=== PATIENT | female | born 1995 | race Caucasian/White ===

== ENCOUNTER → 2019-12-12 | Outpatient (CLI) | payer MEDICAID, SELFPAY ==
[2015-02-08 14:08] VITALS: BMI 31.8
[2019-12-12 12:28] LABS: Chlamydia Trachomatis by PCR Negative (Negative); Neisserai gonorrhoeae by PCR Negative (Negative); Probe Check PASS; Sample Adequacy Control PASS; Specimen Processing Control PASS
== END | disposition home or self-care (01) ==
LOC: LABSPEC 09:25
PROVIDERS: Referring Provider Obstetrics & Gynecology; Visit Provider Obstetrics & Gynecology
DX: Z12.4 Encounter for screening for malignant neoplasm of cervix (principal); Z11.3 Encounter for screening for infections with a predominantly sexual mode of transmission
CPT/HCPCS: 87491; 87591; 88175; G0145

== ENCOUNTER → 2019-12-20 | Outpatient (CLI) | payer MEDICAID, SELFPAY ==
[2019-12-20 17:53] LABS: Absolute Lymphocyte Count 3.36 X10^3/uL (0.83-4.51); Absolute Neutrophil Count 9.6 X10^3/uL (2.0-7.7); Basophil# 0.09 X10^3/uL; Basophil% 0.6 % (0-1); Eosinophils% 0.7 % (0-5); Hematocrit 40.4 % (37-47); Hemoglobin 13.6 g/dL (12.0-15.0); Lymphocyte # 3.36 X10^3/ul (4.0); Mean Corp Hgb Conc 33.7 g/dL (32-36); Mean Corpuscular Hgb 28.9 pg (27.0-32.0); Mean Corpuscular Volume 85.8 fL (81-99); Mean Platelet Vol. 12.5 fl (6.2-12.0); Monocyte# 0.84 X10^3/uL; NRBC Flagged by Analyzer 0 % (0-5); Neutrophil # 9.56 X10^3/uL (2.7-7.7); Neutrophil % 68.2 % (47-70); Platelet Count 191 K/mm3 (150-450); RBC Distribution Width CV 12.4 % (11.6-14.6); RBC Distribution Width SD 38.5 fl (35.1-43.9); Red Blood Count 4.71 M/mm3 (4.2-5.4)
[2019-12-20 17:55] LABS: Color, Urine Yellow (Yellow); Glucose, Dipstick Normal (Normal); Ketone-Dipstick Negative (Negative); Leukocyte Esterase-Dipstick Negative /ul (Negative); Nitrite-Dipstick Negative (Negative); Occult Blood-Urine Negative /ul (Negative); Protein-Dipstick Negative (Negative); Specific Gravity, Urine 1.005 (1.002-1.030); Urine Bilirubin Dipstick Negative (Negative); Urine Clarity Sl. Cloudy (Clear); Urine Urobilinogen Normal (Normal)
[2019-12-20 18:08] LABS: Thyroid Stim Hormone (TSH) 1.16 uIU/mL (0.358-3.74)
[2019-12-20 18:34] LABS: Amphetamine Urine VISTA NEGATIVE (<1000 ng/mL); Barbiturate Urine VISTA NEGATIVE (< 200 ng/mL); Benzodiazepine Urine VISTA NEGATIVE (< 200 ng/mL); Cocaine Urine VISTA NEGATIVE (< 300 ng/mL); Ecstacy Urine VISTA NEGATIVE (< 500 ng/mL); Methadone Urine VISTA NEGATIVE (< 300 ng/mL); PCP Urine VISTA NEGATIVE (< 25 ng/mL); THC Urine VISTA NEGATIVE (< 50 ng/mL); Vista UDS pH Range 6
[2019-12-20 18:59] LABS: COTININE Drug Screen Positive (<200 ng/mL)
[2019-12-21 08:49] LABS: HIV - WCH Non-Reactive (Nonreactive); Hepatitis B Surface Antigen Non-Reactive (Nonreactive); Hepatitis C Antibody Non-Reactive (Nonreactive); Rubella IgG 103.7 IU/mL
[2019-12-27 08:04] LABS: Prenatal RPR NONREACTIVE (NONREACTIVE)
== END | disposition home or self-care (01) ==
PROVIDERS: Referring Provider Obstetrics & Gynecology; Visit Provider Obstetrics & Gynecology
DX: Z34.81 Encounter for supervision of other normal pregnancy, first trimester (principal)
CPT/HCPCS: 80307; 81002; 84443; 85025; 86703; 86762; 86803; 87340

== ENCOUNTER 2020-02-09 18:40 | Emergency (ER) | payer MEDICAID, SELFPAY ==
[2020-02-09 18:42] VITALS: BP 119/57; PULSE 106; RESP 18; TEMP 36.6; O2SAT 99; BMI 29.5
[2020-02-09] MEDS: Acetaminophen 500 MG Tablet 1000 MG PO (19:12)
[2020-02-09 19:23] LABS: Color, Urine Yellow (Yellow); Glucose, Dipstick Normal (Normal); Ketone-Dipstick 5 mg/dl (Negative); Leukocyte Esterase-Dipstick 25 /ul (Negative); Nitrite-Dipstick Negative (Negative); Occult Blood-Urine 10 /ul (Negative); Protein-Dipstick 30 mg/dl (Negative); Specific Gravity, Urine 1.025 (1.002-1.030); Urine Bilirubin Dipstick Negative (Negative); Urine Clarity Clear (Clear); Urine Urobilinogen 1 mg/dl (Normal)
[2020-02-09 19:32] LABS: Bacteria 2+ /hpf (None Seen); Mucous, Urine 1+ /hpf (<or=2+); Red Blood Cells-Urine 0-5 SEEN /hpf (0-5); Renal Epithelial Cells 0-5 SEEN /hpf (0-5); Squamous Epithelial Cells - UA 0-5 SEEN /hpf (5-10); White Blood Cells 0-5 SEEN /hpf (0-5)
--- NOTE | 2020-02-09 19:33 | ED.DCSUM_ITS ---
- ER Visit Summary Date of Service: 02/09/20 Chief Complaint: Abdominal cramping History of Present Illness: The patient is a 24 F who is a G5, P1 patient with Dr. Dinero. She reports she is approximately 17 weeks . States that she has abdominal cramping that began this morning. It is an intermittent pain that lasts 30 seconds to a minute and seems to be occurring every 5 to 6 minutes. She describes it as a cramping, pressure that is 8 of 10 at worst and 6 out of 10 currently. Is worsened by sitting. Is relieved by standing. She denies any associated nausea, vomiting, or diarrhea. Her last bowel was today. No hematochezia. No dysuria or frequency. No vaginal bleeding or discharge. She reports normal movement. Physical Examination: Vitals: Stable. Afebrile. General: Well-nourished and well-developed. Head: Normocephalic atraumatic. Neck: Supple, no lymphadenopathy. No JVD. Nontender. Cardiovascular: Regular rate and rhythm. No murmurs. Respiratory: No respiratory distress. Clear to auscultation bilaterally. Abdominal: Gravid uterus. Soft, mild suprapubic tenderness to palpation. No localized pain in the right upper or right lower quadrants., nondistended, normal bowel sounds. No guarding, rebound, or peritoneal signs. Back: Nontender. Extremities: Nontender, no edema. Skin: Normal color, no rash. Neurologic: Alert and oriented ?3. Cranial nerves II through XII are intact. Normal strength and sensation. Psych: Normal affect. Test Results: Urinalysis shows leukocytes, blood, and ketones. Bacteria of 2+. This was sent for culture. Emergency Department Course and Treatment: Bedside ultrasound shows good movement and heartbeat. Patient was treated with Keflex and Tylenol p.o. She is resting comfortably. Treatment Plan: Patient will be discharged on Keflex. Instructed to follow-up with Dr. Dinero in a week for another exam if not improving. Return to the emergency department for any worsening symptoms. Disposition: To home in improved and stable condition. Impression: 1. Abdominal cramping. 2. Second trimester . 3. Bacteriuria. This note was generated with [employer] software. It may contain incorrect words, spelling, and punctuation that were not noted in review of the chart prior to signing ED Disposition - Plan for ED Patient: Instructions: ED CYSTITIS Female Adult Prescriptions: Cephalexin [Keflex] 500 mg PO Q12 #14 capsule Referrals: Evelyne Darby CNM [Primary Care Provider] - 1 Week if not improving
[2020-02-09 19:39] VITALS: PULSE 76; RESP 15; O2SAT 100
[2020-02-09] MEDS: Cephalexin 500 MG Capsule PO (19:47)
== END 2020-02-09 19:58 | disposition home or self-care (01) ==
PROVIDERS: Emergency Provider Emergency Medicine; PCP Obstetrics & Gynecology
DX: O26.892 Other specified pregnancy related conditions, second trimester (principal); R10.9 Unspecified abdominal pain; R82.71 Bacteriuria; O99.332 Smoking (tobacco) complicating pregnancy, second trimester; F17.210 Nicotine dependence, cigarettes, uncomplicated; Z3A.17 17 weeks gestation of pregnancy
CPT/HCPCS: 81001; 87086; 87088; 99283

== ENCOUNTER 2020-04-30 15:53 | Outpatient (CLI) | payer MEDICAID, SELFPAY ==
[2020-04-30 16:06] VITALS: BP 99/57; PULSE 92; TEMP 37.1; O2SAT 98
[2020-04-30 16:09] VITALS: PULSE 91; O2SAT 98
[2020-04-30 16:10] VITALS: BP 99/57; PULSE 88
[2020-04-30 16:14] VITALS: BMI 33.8
[2020-04-30 16:26] VITALS: BP 101/61; PULSE 85
[2020-04-30 16:41] VITALS: BP 101/62; PULSE 81
[2020-04-30 16:56] VITALS: BP 103/62; PULSE 86
--- NOTE | 2020-05-01 18:27 | OB.TRI.HP_ITS ---
- Problem List (1) 28 weeks gestation of Status: Acute (2) Dizziness Status: Acute (3) Blurred vision Status: Acute History of Present Illness Date of Service: 04/30/20 Was patient seen by the physician?: Yes Reason For Visit: R/O HYPERTENSION,ELEVATED BLOOD PRESSURE Date of Service: 04/30/20 Final BINDU: 07/22/20 Final BINDU Source: US <20 weeks Gestational age: 28 Weeks and 2 Days History of Present Illness: Called in to OB office today with blurred vision, headache and dizziness. States after one hour of rest and hydration she was feeling better, but stood up and got dizzy again. Allergies No Known Allergies Allergy (Verified 02/09/20 18:41) Review of Systems Constitutional: Denies: Chills, Fever, Weight Change HEENT: Denies: Head Aches, Sinus Congestion, Sinus Drainage Cardiovascular: Denies: Chest Pain, Palpitations Respiratory: Denies: Cough, Shortness of breath at rest, Sputum production Gastrointestinal: Denies: Abdominal Pain, Nausea, Vomiting Genitourinary: Denies: Dysuria Musculoskeletal: Denies: Joint Pain, Joint Tenderness Skin: Denies: Rash, Wounds Neurological: Reports: Blurred vision, Headaches. Denies: Focal weakness, Numbness, Tingling Psychiatric: Denies: Anxiety, Depression, Homicidal Ideations, Suicidal Ideations Hematologic/ Lymphatic: Denies: Easy Bruising, Easy Bleeding Physical Exam Vitals: Vital Signs Temp Pulse BP Pulse Ox 98.7 F 86 103/62 98 04/30/20 16:06 04/30/20 16:56 04/30/20 16:56 04/30/20 16:09 General: Alert, Oriented x3, No apparent distress HEENT: Atraumatic, Normocephalic. Negative for: Thyromegaly, Lymphadenopathy Cardiovascular: Regular rate, Regular Rhythm Lungs: Clear to auscultation Abdomen: Bowel Sounds Present, Gravid Neurological: Deep Tendon Reflexes 2+/4 and Symmetrical, Neuro grossly intact SOUND EFFECTS MANAGER: Normal external genitalia. Negative for: Vulvar lesions Estimated gestational size: Appropriate for gestational size NST - FHR Rate Baby A Baseline: 130 Variability:: Moderate Accelerations:: 15 x 15 Decelerations:: None NST Reactive:: Yes FHR Category:: Category I Uterine Activity:: quiet Impression/Plan A/P: at 28 weeks gestation Called in with dizziness, blurred vision and headache With Tylenol and water headache relieved BPs 90s-100s/60s-80s Urine clear Denies vision changes at this time, will discuss with pre press operator as needed Discussed with Dr. Dinero whom agrees to send patient home to rest and hydrate To follow up in the office if worsening s/s or go to the emergency room after hours
== END 2020-04-30 17:15 | disposition home or self-care (01) ==
LOC: WPOUT 15:57 → WP 15:58
PROVIDERS: Referring Provider Obstetrics & Gynecology; Visit Provider Obstetrics & Gynecology
DX: O26.893 Other specified pregnancy related conditions, third trimester (principal); R42 Dizziness and giddiness; H53.8 Other visual disturbances; R03.0 Elevated blood-pressure reading, without diagnosis of hypertension; R51 Headache; Z3A.28 28 weeks gestation of pregnancy
CPT/HCPCS: 59050; 99218; G0378

== ENCOUNTER → 2020-05-05 | Outpatient (CLI) | payer MEDICAID, SELFPAY ==
[2020-04-30 16:14] VITALS: BMI 33.8
[2020-05-05 16:06] LABS: Hematocrit 37.2 % (37-47); Hemoglobin 12.3 g/dL (12.0-15.0); Mean Corp Hgb Conc 33.1 g/dL (32-36); Mean Corpuscular Hgb 29.4 pg (27.0-32.0); Mean Platelet Vol. 12.9 fl (6.2-12.0); Platelet Count 157 K/mm3 (150-450); RBC Distribution Width CV 13.1 % (11.6-14.6); RBC Distribution Width SD 41.9 fl (35.1-43.9); Red Blood Count 4.18 M/mm3 (4.2-5.4)
[2020-05-05 16:10] LABS: Glucose Challenge Gest 1H 50g 73 mg/dL (70-140)
== END | disposition home or self-care (01) ==
LOC: WOBLAB 14:21
PROVIDERS: Visit Provider Obstetrics & Gynecology
DX: Z34.82 Encounter for supervision of other normal pregnancy, second trimester (principal)
CPT/HCPCS: 36415; 82950; 85027

== ENCOUNTER 2020-06-07 23:45 | Outpatient (CLI) | payer MEDICAID, SELFPAY ==
[2020-06-08 00:13] VITALS: BP 105/59; PULSE 78; TEMP 36.9; O2SAT 95
[2020-06-08 00:18] VITALS: BMI 36.0
[2020-06-08 00:29] LABS: Bacteria 0 SEEN /hpf (None Seen); Mucous, Urine 0 SEEN /hpf (<or=2+); Red Blood Cells-Urine 0 SEEN /hpf (0-5)
[2020-06-08 00:30] LABS: Color, Urine Yellow (Yellow); Glucose, Dipstick Normal (Normal); Ketone-Dipstick Negative (Negative); Leukocyte Esterase-Dipstick 25 /ul (Negative); Nitrite-Dipstick Negative (Negative); Occult Blood-Urine Negative /ul (Negative); Protein-Dipstick Negative (Negative); Urine Bilirubin Dipstick Negative (Negative); Urine Clarity Clear (Clear); Urine Urobilinogen Normal (Normal)
[2020-06-08 00:35] LABS: Squamous Epithelial Cells - UA 0-5 SEEN /hpf (5-10); White Blood Cells 0-5 SEEN /hpf (0-5)
--- NOTE | 2020-06-08 08:23 | PCM.PN.BLA ---
Progress Note Triage Note CC: urinary symptoms HPI: Reports urinary symptoms, burning and frequency. Contractions. complicated by: history of depression OBHx: G1 SAB G2: 39w c/s G3: SAB G4: SAB G5: current Medical hx: depression Surgical Hx: right ovarian cystectomy, c/s, tonsillectomy Medications: PNV Allergies: NKDA Social hx: denies tobacco, alcohol, drugs PE: Vital Signs - 24 hr 06/08/20 00:13 Temperature 98.4 F Pulse Rate 78 Blood Pressure 105/59 L Pulse Ox 95 Exam per RN CE not performed Contractions palpating mild and patient comfortable during FHR: 120/mod hussein/+accel/no decel [place]: irregular Labs: Laboratory Last Values Urine Color Yellow (Yellow) 06/08/20 00:00 Urine Clarity Clear (Clear) 06/08/20 00:00 Urine pH 7.0 (5.0 - 8.0) 06/08/20 00:00 Ur Specific [place] 1.010 (1.002-1.030) 06/08/20 00:00 Urine Protein Negative mg/dl (Negative) 06/08/20 00:00 Urine Glucose (UA) Normal mg/dl (Normal) 06/08/20 00:00 Urine Ketones Negative mg/dl (Negative) 06/08/20 00:00 Urine Occult Blood Negative /ul (Negative) 06/08/20 00:00 Urine Nitrite Negative (Negative) 06/08/20 00:00 Urine Bilirubin Negative mg/dL (Negative) 06/08/20 00:00 Urine Urobilinogen Normal mg/dl (Normal) 06/08/20 00:00 Ur Leukocyte Esterase 25 /ul (Negative) H 06/08/20 00:00 Urine RBC 0 SEEN /hpf (0-5) 06/08/20 00:00 Urine WBC 0-5 SEEN /hpf (0-5) 06/08/20 00:00 Ur Squamous Epith Cells 0-5 SEEN /hpf (5-10) 06/08/20 00:00 Urine Bacteria 0 SEEN /hpf (None Seen) 06/08/20 00:00 Urine Mucus 0 SEEN /hpf (<or=2+) 06/08/20 00:00 A/P: 24 yo G1 at 33/5 Presenting with urinary symptoms and contractions. No signs of UTI per UA. Contractions about every 6 minutes, patient comfortable. Discharge home with labor precautions. Rest and PO hydrate. Follow up in office this week.
== END 2020-06-08 01:00 | disposition home or self-care (01) ==
LOC: WPOUT 23:47 → WP 23:50
PROVIDERS: Visit Provider Student in an Organized Health Care Education/Training Program
DX: O26.893 Other specified pregnancy related conditions, third trimester (principal); R30.0 Dysuria; R35.0 Frequency of micturition
CPT/HCPCS: 59025; 59050; 81001; 99218; G0378

== ENCOUNTER 2020-06-22 16:30 | Outpatient (CLI) | payer MEDICAID, SELFPAY ==
[2020-06-22 16:42] VITALS: BP 126/68; PULSE 104; PULSE 107; TEMP 37.1; O2SAT 99
[2020-06-22 16:44] VITALS: PULSE 104; O2SAT 99
[2020-06-22 17:30] LABS: ROM Internal Control Test YES-OK TO RESULT pt. (Internal QC); ROM Patient Test Negative (Negative)
[2020-06-22 18:04] VITALS: BMI 36.7
[2020-06-22 19:49] VITALS: BP 104/62; PULSE 86; O2SAT 98
[2020-06-22 19:51] VITALS: TEMP 36.9
--- NOTE | 2020-06-26 12:48 | OB.TRI.NOTE ---
- Problem List (1) 35 weeks gestation of Status: Acute History of Present Illness Date of Service: 06/22/20 Reason For Visit: FALL Final BINDU: 07/24/20 Final BINDU Source: US <20 weeks Gestational age: 35 Weeks and 3 Days History of Present Illness: 24yo presents s/p fall down 3 steps without abdominal trauma. Allergies No Known Allergies Allergy (Verified 06/22/20 17:00) Laboratory Studies: Laboratory Tests 06/22/20 Range/Units 17:05 Vag Amniotic Fld Detect Negative (Negative) Physical Exam Vitals: Vital Signs Temp Pulse BP Pulse Ox 98.4 F 86 104/62 98 06/22/20 19:51 06/22/20 19:49 06/22/20 19:49 06/22/20 19:49 NST - FHR Rate Baby A Baseline: 120 Variability:: Moderate Accelerations:: 15 x 15 Decelerations:: None NST Reactive:: Yes FHR Category:: Category I Uterine Activity:: 0/10 Impression/Plan 24yo @ 35 3/7wga -Cat I FHR -ROM plus neg -d/c home
== END 2020-06-22 20:55 | disposition home or self-care (01) ==
LOC: WPOUT 16:39 → OBT 16:40
PROVIDERS: Visit Provider Obstetrics & Gynecology
DX: Z34.93 Encounter for supervision of normal pregnancy, unspecified, third trimester (principal); Z23 Encounter for immunization; W19.XXXA Unspecified fall, initial encounter; Y92.9 Unspecified place or not applicable; Y93.9 Activity, unspecified; Z3A.35 35 weeks gestation of pregnancy
CPT/HCPCS: 59025; 59050; 84112; 96372; 99218; 90686; G0378

== ENCOUNTER → 2020-07-01 | Outpatient (CLI) | payer MEDICAID, SELFPAY ==
[2020-06-22 18:04] VITALS: BMI 36.7
== END | disposition home or self-care (01) ==
LOC: LABSPEC 11:54
PROVIDERS: Visit Provider Student in an Organized Health Care Education/Training Program
DX: Z36.85 Encounter for antenatal screening for Streptococcus B (principal)
CPT/HCPCS: 87081

== ENCOUNTER → 2020-07-14 14:47 | Outpatient (CLI) | payer MEDICAID, SELFPAY ==
[2020-06-22 18:04] VITALS: BMI 36.7
[2020-07-14 16:45] LABS: Hematocrit 36.9 % (37-47); Hemoglobin 12.1 g/dL (12.0-15.0); Mean Corp Hgb Conc 32.8 g/dL (32-36); Mean Corpuscular Hgb 27.9 pg (27.0-32.0); Mean Corpuscular Volume 85.2 fL (81-99); Mean Platelet Vol. 12.7 fl (6.2-12.0); Platelet Count 165 K/mm3 (150-450); RBC Distribution Width CV 13.8 % (11.6-14.6); RBC Distribution Width SD 42.5 fl (35.1-43.9); Red Blood Count 4.33 M/mm3 (4.2-5.4); White Blood Count 23.4 K/mm3 (4.4-11.0)
[2020-07-14 16:57] LABS: ALB/GLOB Ratio 0.7 RATIO (0.9-2.4); AST(SGOT) 8 U/L (15-37); Alanine Aminotransfer ALT/SGPT 13 U/L (13-56); Albumin, Serum 2.7 g/dL (3.2-5.0); Alkaline Phosphatase 147 U/L (45-117); Anion Gap 8 (5-15); BUN 6 mg/dL (7-18); BUN/Creat Ratio 9.5 RATIO (10-20); Calcium,Total 8.5 mg/dL (8.5-10.1); Chloride 109 mmol/L (98-107); Creatinine, Serum 0.63 mg/dL (0.55-1.02); EST Glomerular Filtration Rate 124 mL/min (>60); Est Glom Filt Rate - Afr Amer 150 mL/min (>60); Globulin 3.9 g/dL (2.2-4.2); Glucose 89 mg/dL (74-106); LDH 155 U/L (84-246); Potassium 3.8 mmol/L (3.5-5.1); Protein, Total 6.6 g/dL (6.4-8.2); Sodium Level 139 mmol/L (136-145)
[2020-07-14 17:27] LABS: Protein, Urine (Random) < 6.0 mg/dL (<11.9)
== END ==
PROVIDERS: Visit Provider Student in an Organized Health Care Education/Training Program
DX: R51.9 Headache, unspecified (principal)
CPT/HCPCS: 36415; 80053; 82570; 83615; 84156; 85027; 87086; 87088

== ENCOUNTER → 2020-07-22 10:02 | Outpatient (CLI) | payer MEDICAID, SELFPAY ==
[2020-06-22 18:04] VITALS: BMI 36.7
== END ==
PROVIDERS: Referring Provider Student in an Organized Health Care Education/Training Program; Visit Provider Student in an Organized Health Care Education/Training Program
DX: Z03.818 Encounter for observation for suspected exposure to other biological agents ruled out (principal)
CPT/HCPCS: 87635; C9803; U0003

== ENCOUNTER 2020-07-24 18:55 | Outpatient (CLI) | payer MEDICAID, SELFPAY ==
[2020-07-24 19:10] VITALS: BP 123/64; PULSE 99; TEMP 36.7; O2SAT 98
[2020-07-24 19:28] VITALS: BMI 37.8
[2020-07-24 20:19] LABS: Mucous, Urine 0 SEEN /hpf (<or=2+); Red Blood Cells-Urine 0 SEEN /hpf (0-5)
[2020-07-24 20:23] LABS: Color, Urine Yellow (Yellow); Glucose, Dipstick Normal (Normal); Ketone-Dipstick 5 mg/dl (Negative); Leukocyte Esterase-Dipstick Negative /ul (Negative); Nitrite-Dipstick Negative (Negative); Occult Blood-Urine Negative /ul (Negative); Protein-Dipstick Negative (Negative); Specific Gravity, Urine 1.015 (1.002-1.030); Urine Bilirubin Dipstick Negative (Negative); Urine Clarity Clear (Clear); Urine Urobilinogen Normal (Normal); Urine pH 6.5 (5.0 - 8.0)
[2020-07-24 20:35] LABS: Bacteria RARE /hpf (None Seen); Squamous Epithelial Cells - UA 0-5 SEEN /hpf (5-10); White Blood Cells 0-5 SEEN /hpf (0-5)
--- NOTE | 2020-07-25 08:37 | OB.TRI.HP_ITS ---
History of Present Illness Date of Service: 07/24/20 Was patient seen by the physician?: No Reason For Visit: RULE OUT LABOR Date of Service: 07/24/20 Final BINDU: 07/24/20 Final BINDU Source: US <20 weeks Gestational age: 40 Weeks and 1 Days History of Present Illness: Patient arrives with contractions Allergies No Known Allergies Allergy (Verified 06/22/20 17:00) Laboratory Studies: Laboratory Tests 07/24/20 Range/Units 19:50 Urine Color Yellow (Yellow) Urine Clarity Clear (Clear) Urine pH 6.5 (5.0 - 8.0) Ur Specific [place] 1.015 (1.002-1.030) Urine Protein Negative (Negative) mg/dl Urine Glucose (UA) Normal (Normal) mg/dl Urine Ketones 5 H (Negative) mg/dl Urine Occult Blood Negative (Negative) /ul Urine Nitrite Negative (Negative) Urine Bilirubin Negative (Negative) mg/dL Urine Urobilinogen Normal (Normal) mg/dl Ur Leukocyte Esterase Negative (Negative) /ul Urine RBC 0 SEEN (0-5) /hpf Urine WBC 0-5 SEEN (0-5) /hpf Ur Squamous Epith Cells 0-5 SEEN (5-10) /hpf Urine Bacteria RARE (None Seen) /hpf Urine Mucus 0 SEEN (<or=2+) /hpf Physical Exam Vitals: Vital Signs Temp Pulse BP Pulse Ox 98.1 F 99 123/64 H 98 07/24/20 19:10 07/24/20 19:10 07/24/20 19:10 07/24/20 19:10 NST - FHR Rate Baby A Baseline: 120 Variability:: Moderate Accelerations:: 15 x 15 Decelerations:: None NST Reactive:: Yes Uterine Activity:: Few contractions Impression/Plan Patient arrives with contractions ruled out labor. Reactive NST. Okay to discharge home.
== END 2020-07-24 20:45 | disposition home or self-care (01) ==
PROVIDERS: Referring Provider Obstetrics & Gynecology; Visit Provider Obstetrics & Gynecology
DX: O48.0 Post-term pregnancy (principal); Z3A.40 40 weeks gestation of pregnancy
CPT/HCPCS: 59025; 59050; 81001; 99218; G0378

== ENCOUNTER 2020-07-28 08:30 | Outpatient (CLI) | payer MEDICAID, SELFPAY ==
[2020-07-28 08:41] VITALS: BP 98/59; PULSE 75; TEMP 36.6; O2SAT 97
[2020-07-28 08:46] VITALS: BMI 37.0
--- NOTE | 2020-07-31 22:07 | OB.TRI.NOTE ---
History of Present Illness Date of Service: 07/28/20 Was patient seen by the physician?: Yes Reason For Visit: NST Date of Service: 07/28/20 Final BINDU: 07/24/20 Final BINDU Source: LMP Gestational age: 41 Weeks and 0 Days History of Present Illness: Patient originally scheduled for induction of labor now delayed. Now for NST. Asymptomatic. Denies headache, visual changes, chest pain, shortness of breath, nausea vomiting, right upper quadrant pain. Denies leakage of fluid or vaginal bleeding. States good movement. Review of systems: Besides the above pertinent positives a full review of systems was performed and found to be negative Allergies No Known Allergies Allergy (Verified 07/28/20 16:10) Physical Exam Vitals: Vital Signs Temp Pulse BP Pulse Ox 97.9 F 75 98/59 L 97 07/28/20 08:41 07/28/20 08:41 07/28/20 08:41 07/28/20 08:41 General: Alert, Oriented x3, Cooperative, No apparent distress, Well developed, Well nourished HEENT: Atraumatic, PERRLA, Normocephalic Abdomen: Bowel Sounds Present, Soft, Non Tender, Gravid Extremities:: No clubbing, No cyanosis, No edema Neurological: Neuro grossly intact NST - FHR Rate Baby A Baseline: 120 Variability:: Moderate Accelerations:: 15 x 15 Decelerations:: None NST Reactive:: Yes Uterine Activity:: Few contractions Impression/Plan Patient previously scheduled for induction of labor at term. Delayed. NST today reactive, reassuring. To return later today for induction of labor.
== END 2020-07-28 09:05 | disposition home or self-care (01) ==
LOC: WPOUT 08:34 → WP 08:35
PROVIDERS: Visit Provider Obstetrics & Gynecology
DX: O48.0 Post-term pregnancy (principal); Z3A.41 41 weeks gestation of pregnancy
CPT/HCPCS: 59025; 59050; 99218; G0378

== ENCOUNTER 2020-07-28 17:05 | Inpatient (IN) | payer MEDICAID, SELFPAY ==
[2020-07-28] VITALS (11 sets, daily range): BP systolic 93–127; BP diastolic 55–73; PULSE 66–91; TEMP 36.4–37.1; O2SAT 98–100; BMI 37.0; BMI 37.9
[2020-07-28] MEDS: Lactated Ringers 1,000 ML 50 ML IV (17:20)
[2020-07-28] MEDS: Oxytocin 30 units/NS 500 ml 30 UNITS/500 ML IV.SOLN IV (18:10)
[2020-07-28 18:19] LABS: Absolute Lymphocyte Count 3.35 X10^3/uL (0.83-4.51); Basophil# 0.08 X10^3/uL; Basophil% 0.4 % (0-1); Eosinophils% 1.1 % (0-5); Hematocrit 38.3 % (37-47); Hemoglobin 12.2 g/dL (12.0-15.0); Lymphocyte # 3.35 X10^3/ul (4.0); Lymphocyte % 17.8 % (19-41); Mean Corp Hgb Conc 31.9 g/dL (32-36); Mean Corpuscular Hgb 27.3 pg (27.0-32.0); Mean Corpuscular Volume 85.7 fL (81-99); Mean Platelet Vol. 12.7 fl (6.2-12.0); Monocyte# 0.89 X10^3/uL; Monocyte% 4.7 % (0-10); NRBC Flagged by Analyzer 0 % (0-5); Neutrophil # 13.99 X10^3/uL (2.7-7.7); Neutrophil % 74.4 % (47-70); Platelet Count 190 K/mm3 (150-450); RBC Distribution Width CV 14.3 % (11.6-14.6); RBC Distribution Width SD 44.1 fl (35.1-43.9); Red Blood Count 4.47 M/mm3 (4.2-5.4); White Blood Count 18.8 K/mm3 (4.4-11.0)
--- NOTE | 2020-07-28 18:40 | HP.PCM_ITS ---
History and Physical Date of Admission: 07/28/20 HPI: 24 yo at 40/4w, BINDU 07/24/20 by LMP, admitted for trial of labor after section. Denies LOF, VB, contractions. +FM. Denies [place], vision changes, chest pain, dyspnea, nausea/emesis. This is complicated by: prior section for nonreassuring fet al heart tones Obstetrical History BINDU 07/24/20 by lmp G1: SAB G2: 39w C/S NRFHT, Op note reviewed G3: SAB G4: SAB G5: current Past Medical History Depression Medications PNV, ASA 81 mg Past Surgical History tonsillectomy, section, ovarian cystectomy Social History Tobacco use: 2 cigarettes per day Alcohol use: denies Illicit drug use: denies Labs Blood type: A pos Rubella: immune Hep B/C: neg HIV: neg RPR: nonreactive GBS: neg 07/04 COVID negative Allergies NKDA Review of Systems General: alert and oriented HEENT: _denies change of vision Heart/lungs: _denies CP, SOB GI: _denies nausea, vomiting, dysuria, diarrhea MSK: _denies calf pain, tenderness Physical Exam Vital Signs Temp Pulse BP Pulse Ox 07/28/20 17:15 98.8 F 91 117/65 99 07/28/20 17:14 98.8 F General: a&o x3, NAD HEENT: normocephalic, atraumatic Cardio: no JVD Resp: no increased work in breathing Abdomen: soft, gravid, nontender Extremities: _minimal-moderate edema CE: 50/-3 FHT: 110/mod zak/+accel/no decel [place]: irregular BSUS: cephalic Labs Laboratory Tests 07/28/20 Range/Units 17:20 WBC 18.8 H (4.4-11.0) K/mm3 RBC 4.47 (4.2-5.4) M/mm3 Hgb 12.2 (12.0-15.0) g/dL Hct 38.3 (37-47) % MCV 85.7 (81-99) fL MCH 27.3 (27.0-32.0) pg MCHC 31.9 L (32-36) g/dL RDW Std Deviation 44.1 H (35.1-43.9) fl RDW Coeff of Zak 14.3 (11.6-14.6) % Plt Count 190 (150-450) K/mm3 MPV 12.7 H (6.2-12.0) fl Immature Gran % (Auto) 1.600 H (0.0-0.9) % Neut % (Auto) 74.4 H (47-70) % Lymph % (Auto) 17.8 L (19-41) % [place] % (Auto) 4.7 (0-10) % Eos % (Auto) 1.1 (0-5) % Baso % (Auto) 0.4 (0-1) % Absolute Neuts (auto) 14.0 H (2.0-7.7) X10^3/uL Absolute Lymphs (auto) 3.35 (0.83-4.51) X10^3/uL Nucleated RBC % 0 (0-5) % Assessment & Plan 24 yo at 40/4w, BINDU 07/24/20 by LMP, admitted for trial of labor after section. This is complicated by: prior section for nonreassuring heart tones, calculator 65.5%. Reviewed risks of trial of labor after section including, but not limited to: risk of repeat section, <1% risk of uterine rupture, risk of hysterectomy with uterine rupture, risk of harm to fetus with uterine rupture. Had discussed greatest chance of success with spontaneous labor. Patient had requested induction after 40 weeks, understands. Patient aware, consented. Induction of labor at term with pitocin.
[2020-07-28] MEDS: Acetaminophen 500 MG Tablet PO (20:11)
[2020-07-28] MEDS: Mag Hydrox/Al Hydrox/Simeth 30 ML UDC PO (20:53)
[2020-07-29] VITALS (105 sets, daily range): BP systolic 93–125; BP diastolic 51–88; PULSE 54–98; RESP 14–18; TEMP 35.8–37.1; O2SAT 82–100
--- NOTE | 2020-07-29 02:20 | PCM.PN.BLA ---
Progress Note FHR deceleration to yun of 70 x3 minutes. Recovered with position change to hands and knees. Pitocin off, LR bolus being given. Last CE 1-2 cm. FHR now 110/mod hussein/+accel/no decel. Plan to keep pitocin off x1 hour. Restart with cat I tracing at that time. STROKE Vital Signs/Narrative: Vital Signs Temp Pulse BP Pulse Ox 07/29/20 01:54 97.3 F L 59 L 122/75 H 07/29/20 00:52 63 102/51 L 07/29/20 00:51 97.3 F L 07/28/20 23:49 97.5 F L 68 93/55 L 100
[2020-07-29] MEDS: Lactated Ringers 500 ML 999 ML IV ×2 (02:25→15:40)
[2020-07-29] MEDS: fentaNYL-bupivacaine (epidural) 100 ML BAG EPIDURAL ×3 (03:35→11:44)
[2020-07-29] MEDS: Lactated Ringers 1,000 ML 200 ML IV ×3 (03:54→14:15)
[2020-07-29] MEDS: Cefazolin 2 GM in 0.9% Normal Saline 100 ML IV (15:45)
--- NOTE | 2020-07-29 16:51 | PCM.OPRPT ---
Delivery Classification: FAITH Final BINDU: 07/24/20 Final BINDU Source: LMP Gestational age: 40 Weeks and 5 Days Type of Anesthesia:: Epidural, Spinal General Anesthesia Date of Procedure: 07/29/20 Pre-Operative Diagnosis: Enrique intrauterine at 40/5 weeks, trial of labor after section, nonreassuring heart tones Post-Operative Diagnosis: Enrique intrauterine at 40/5 weeks, trial of labor after section, nonreassuring heart tones Indications: This is a 24-year-old G5, P1 at 40 weeks and 3 days who was admitted for trial of labor after section on 07/28/2020. Patient was being induced with Pitocin, she had progressed from 1 to 3 cm. Patient had artificial rupture of membranes. She had heart rate deceleration to a yun of 65 for 5 minutes. Cervix was checked and was unchanged, FSE was placed, Pitocin turned off, LR bolus started. She was taken back to the operating room. Upon arrival to the operating room heart rate had recovered to the 115s to 120s. Cervical exam was completed again, cervix was dilated to 3 to 4 cm without umbilical prolapse noted. At that time patient elected for repeat section. Decision for repeat section made based on prolonged heart rate deceleration and patient desire. All risks, benefits, alternatives were discussed the patient. Risks include but are not limited to: Risk of bleeding to the point of transfusion, infection, injury to surrounding tissue including bowel or bladder requiring prolonged Juarez catheter use, VTE, ICU admission. Patient were consented. Description of Procedure: Patient was taken to the operating room after above proceedings. Epidural was dosed. Patient was prepped and draped in the usual sterile fashion. Patient was found to be numb at the level of the incision however 2 cm superiorly she could feel with Allis clamps. Epidural was dosed again and lidocaine was injected, patient continued to be able to feel sharp pain. At that time the anesthesia team decided to place patient under general anesthesia. Pfannenstiel skin incision was made with scalpel and carried down through subcutaneous tissue. Fascia nicked on either side of the midline and extended bluntly. Adhesions noted at the fascial layer and also midline between the rectus muscles. Superior fascial edge was tented up and underlying rectus muscles were dissected off using Lwoe scissors. 2 hemostats were used to grasped at the midline where adhesions were noted between the rectus muscles this was tented up and Lowe scissors were utilized to dissect. Peritoneum was entered and extended bluntly. Adhesions were noted on the left side of the uterus to the anterior abdominal wall this was dissected away using Metzenbaum scissors and some blunt dissection. Bladder blade placed. Low transverse uterine incision made with a scalpel. Hysterotomy extended bluntly. Hand placed into the uterus and had elevated to the level of the incision with the assistance of gentle fundal pressure head delivered followed by body after bladder blade was removed. No nuchal cords noted cord clamped and cut baby handed to nursing. Manual extraction of the placenta. Uterus then exteriorized and cleared of all clots. Hysterotomy closed with a running locking fashion followed by a second vertical imbricating stitch. Due to adhesions of the peritoneum to the anterior uterus, peritoneum was not closed. Muscles were however reapproximated with horizontal mattress stitches. Fascia was then closed with a running stitch. Subcutaneous tissue closed with running stitch and skin closed with a running subcuticular stitch. At the end of the procedure all needle, lap, sponge counts were correct x3. UOP 150cc clear urine. Amniotic Membrane Rupture Type: Artificial Amniotic Fluid Description: Clear Fluids Replaced: 1L Cord Entanglement: None Esitmated Blood Loss (ml): 800CC Gender: Female (1 minute): 8 (5 minute): 9 Delayed cord clamping: No
[2020-07-29] MEDS: Oxytocin 30 units/NS 500 ml 30 UNITS/500 ML IV.SOLN 167 UNITS IV (17:15)
--- NOTE | 2020-07-29 20:10 | NURSING ---
epidural cath removed with blue tip intact pt tolerated well
[2020-07-29] MEDS: Lactated Ringers 1,000 ML 100 ML IV (20:27)
[2020-07-29] MEDS: HYDROmorphone 0.5 MG/0.5 ML SYRINGE IV (20:27)
[2020-07-29] MEDS: 0.9% Saline Lock 10 ML Syringe IV ×2 (20:28→23:14)
--- NOTE | 2020-07-29 21:18 | NURSING ---
report received from mandie IRIZARRY. this rn to assume care of pt at this time.
[2020-07-29] MEDS: Ketorolac 30 MG/ML Syringe IV (23:14)
[2020-07-29] MEDS: Acetaminophen 500 MG Tablet 1000 MG PO (23:15)
[2020-07-30] VITALS (15 sets, daily range): BP systolic 92–109; BP diastolic 43–60; PULSE 65–78; RESP 12–18; TEMP 36.6–37; O2SAT 98–99
[2020-07-30] MEDS: 0.9% Saline Lock 10 ML Syringe IV ×4 (05:05→16:35)
[2020-07-30] MEDS: Ketorolac 30 MG/ML Syringe IV ×3 (05:05→16:35)
[2020-07-30 05:06] LABS: Hematocrit 30.8 % (37-47); Hemoglobin 10.1 g/dL (12.0-15.0); Mean Corp Hgb Conc 32.8 g/dL (32-36); Mean Corpuscular Hgb 28.1 pg (27.0-32.0); Mean Corpuscular Volume 85.6 fL (81-99); Mean Platelet Vol. 12.4 fl (6.2-12.0); Platelet Count 140 K/mm3 (150-450); RBC Distribution Width CV 14.3 % (11.6-14.6); RBC Distribution Width SD 44.4 fl (35.1-43.9); White Blood Count 17.3 K/mm3 (4.4-11.0)
[2020-07-30] MEDS: Enoxaparin 40 MG/0.4 ML Syringe SC (05:06)
[2020-07-30] MEDS: Acetaminophen 500 MG Tablet 1000 MG PO ×4 (05:06→23:16)
[2020-07-30] MEDS: HYDROmorphone 0.5 MG/0.5 ML SYRINGE IV (06:01)
--- NOTE | 2020-07-30 08:37 | PN.OBGYN_ITS ---
Subjective: Pain controlled, OOB and passing flatus. Denies fever, chills, nausea, vomiting. Denies heavy lochia. Objective: avss - Physical Exam Vitals/I&O's: Vital Signs Temp Pulse Resp BP Pulse Ox 98.6 F 68 16 105/55 L 98 07/30/20 08:30 07/30/20 08:30 07/30/20 08:30 07/30/20 08:30 07/30/20 08:30 Oxygen Delivery Method Room Air Weight: 100.2 kg Body Mass Index (BMI) 37.9 Intake and Output for Last 24 Hours 07/28/20 07/29/20 07/30/20 23:59 23:59 23:59 Intake Total 930.59 / 930.59 6196.35 / 6196.35 865 / 865 Output Total 700 / 700 3350 / 3350 1800 / 1800 Balance 230.59 / 230.59 2846.35 / 2846.35 -935 / -935 General: Alert, Oriented x3, Cooperative, No apparent distress HEENT: Atraumatic, Normocephalic Lungs: Normal air movement, - - +rhonchi bilaterally Cardiovascular: Regular rate, Regular Rhythm, Normal S1, Normal S2 Abdomen: Soft, Non Tender, Non-Distended, - - Fundus firm and nontender Extremities: No edema, No Calf Tenderness Neurological: Neuro grossly intact Psych/Mental Status: Normal Affect, Appropriate, Alert and oriented to time, place, person, mood and affect Laboratory Results 07/30/20 05:00: WBC 17.3 H, RBC 3.60 L, Hgb 10.1 L, Hct 30.8 L, MCV 85.6, MCH 28.1, MCHC 32.8, RDW Std Deviation 44.4 H, RDW Coeff of Zak 14.3, Plt Count 140 L, MPV 12.4 H Current Medications Acetaminophen (Acetaminophen 500 Mg Tablet) 1,000 mg PO Q6H RICKY Last Admin: 07/30/20 05:06 Dose: 1,000 mg Documented by: Bisacodyl (Bisacodyl 10 Mg Suppository) 10 mg RECTAL UD PRN PRN Reason: If no BM Diphenhydramine HCl (Diphenhydramine 25 Mg Capsule) 25 mg PO Q6H PRN PRN PRN Reason: ITCHING Stop: 07/30/20 17:38 Enoxaparin Sodium (Enoxaparin 40 Mg/0.4 Ml Syringe) 40 mg SC DAILY@0500 [facility] Last Admin: 07/30/20 05:06 Dose: 40 mg Documented by: Hydrocortisone (Hydrocortisone 2.5% Crm) 1 applic TOPICAL TID PRN PRN; Protocol PRN Reason: Discomfort Hydromorphone HCl (Hydromorphone 0.5 Mg/0.5 Ml Syringe) 0.5 mg IV Q2H PRN PRN PRN Reason: Pain Score 6-10 Stop: 07/30/20 16:00 Last Admin: 07/30/20 06:01 Dose: 0.5 mg Documented by: Lactated Ringer's () 1,000 mls @ 100 mls/hr IV .Q10H [facility] Last Infusion: 07/30/20 05:06 Dose: Infused Documented by: Ibuprofen (Ibuprofen 600 Mg Tablet) 600 mg PO Q6H [facility] Ketorolac Tromethamine (Ketorolac 30 Mg/Ml Syringe) 30 mg IV Q6H [facility] Stop: 07/30/20 17:01 Last Admin: 07/30/20 05:05 Dose: 30 mg Documented by: Methylergonovine Maleate (Methylergonovine 0.2 Mg/Ml Ampul) 0.2 mg IM X1 PRN PRN Reason: Uterine Atony Nalbuphine HCl (Nalbuphine 10 Mg/Ml Ampul) 5 mg IV Q3H PRN PRN PRN Reason: ITCHING Stop: 07/30/20 17:38 Naloxone HCl (Naloxone 0.4 Mg/Ml Syringe) 0.02 mg IV Q1M PRN PRN Reason: RR <10 and pt unresponsive Oxycodone HCl (Oxycodone 5 Mg Tablet) 5 - 10 mg PO Q4H PRN PRN PRN Reason: Pain Score 4-10 Senna/Docusate Sodium (Senna/Docusate Sodium 1 Tablet) 0 tablet PO DAILY [facility] Simethicone (Simethicone 80 Mg Tablet) 80 mg PO PCHS PRN PRN Reason: Indigestion/stomach pain Sodium Chloride (0.9% Saline Lock 10 Ml Syringe) 5 - 15 ml IV UD PRN PRN Reason: SALINE FLUSH Last Admin: 07/30/20 06:01 Dose: 10 ml Documented by: Medical Necessity - Tobacco Use Smoking Status: Light Smoker (<10/day) Assessment/Plan All Active Problems Delivery by section (Acute) 40 weeks gestation of (Acute) 24yo POD#1 s/p RLTCS at 40 5/7 doing well. -Rh positive -Routine postop care -Smoker, no cigarette since admission, pt plans cessation. Encouraged smoking cessation. Incentive spirometry, walking. Si/sx infection reviewed.
[2020-07-30] MEDS: Senna/Docusate Sodium 1 Tablet PO (11:02)
--- NOTE | 2020-07-30 14:26 | NURSING ---
Pt requesting to have doctor reassess if she could be discharged today. At this time Dr Elda talbot would prefer that pt stay d/t rhonchi heard bilaterally in lungs and pt having cough
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
[2020-07-30] MEDS: oxyCODONE 5 MG Tablet PO ×2 (18:13→23:15)
--- NOTE | 2020-07-30 22:54 | NURSING ---
RN called to room after patient passed and flat egg size clot while up to the bathroom. Patient standing at bedside upon RN entering the room. She states she is slightly dizzy. RN assisted to bed and performed fundus exam to assess bleeding. Small amount of blood on pad. Fundus firm. No s/s of excessive bleeding noted. Patient asked to remain in bed and hydrate. Plan call RN before standing if feeling dizzy.
[2020-07-30] MEDS: Ibuprofen 600 MG Tablet PO (23:01)
[2020-07-31 02:47] VITALS: BP 106/54; PULSE 68; RESP 16; TEMP 36.5
[2020-07-31] MEDS: Ibuprofen 600 MG Tablet PO (04:50)
[2020-07-31] MEDS: Enoxaparin 40 MG/0.4 ML Syringe SC (04:50)
[2020-07-31] MEDS: Acetaminophen 500 MG Tablet 1000 MG PO (05:07)
[2020-07-31] MEDS: oxyCODONE 5 MG Tablet PO (05:07)
[2020-07-31 07:38] VITALS: BP 122/70; PULSE 78; RESP 18; TEMP 36.4
--- NOTE | 2020-07-31 08:16 | PN.OBGYN_ITS ---
Subjective: POD#2 Feeling well. Minimal lochia. No dyspnea or cough. - Physical Exam Vitals/I&O's: Vital Signs Temp Pulse Resp BP Pulse Ox 97.6 F L 78 18 122/70 H 98 07/31/20 07:38 07/31/20 07:38 07/31/20 07:38 07/31/20 07:38 07/30/20 22:53 Oxygen Delivery Method Room Air Weight: 100.2 kg Body Mass Index (BMI) 37.9 Intake and Output for Last 24 Hours 07/29/20 07/30/20 07/31/20 23:59 23:59 23:59 Intake Total 6196.35 / 6196.35 865 / 865 Output Total 3350 / 3350 2200 / 2200 Balance 2846.35 / 2846.35 -1335 / -1335 General: Alert, Oriented x3 HEENT: Atraumatic, Normocephalic Lungs: Clear to auscultation Cardiovascular: Regular rate, Regular Rhythm Abdomen: Non Tender, Non-Distended - mildly tender, dressing c/d, uterus 2 cm below umbilicus Extremities: Edema - trace Neurological: Cranial nerves II-XII grossly intact, Neuro grossly intact Psych/Mental Status: Normal Affect, Appropriate Current Medications Acetaminophen (Acetaminophen 500 Mg Tablet) 1,000 mg PO Q6H [facility] Last Admin: 07/31/20 05:07 Dose: 1,000 mg Documented by: Bisacodyl (Bisacodyl 10 Mg Suppository) 10 mg RECTAL UD PRN PRN Reason: If no BM Enoxaparin Sodium (Enoxaparin 40 Mg/0.4 Ml Syringe) 40 mg SC DAILY@0500 [facility] Last Admin: 07/31/20 04:50 Dose: 40 mg Documented by: Hydrocortisone (Hydrocortisone 2.5% Crm) 1 applic TOPICAL TID PRN PRN; Protocol PRN Reason: Discomfort Ibuprofen (Ibuprofen 600 Mg Tablet) 600 mg PO Q6H [facility] Last Admin: 07/31/20 04:50 Dose: 600 mg Documented by: Methylergonovine Maleate (Methylergonovine 0.2 Mg/Ml Ampul) 0.2 mg IM X1 PRN PRN Reason: Uterine Atony Naloxone HCl (Naloxone 0.4 Mg/Ml Syringe) 0.02 mg IV Q1M PRN PRN Reason: RR <10 and pt unresponsive Oxycodone HCl (Oxycodone 5 Mg Tablet) 5 - 10 mg PO Q4H PRN PRN PRN Reason: Pain Score 4-10 Last Admin: 07/31/20 05:07 Dose: 5 mg Documented by: Senna/Docusate Sodium (Senna/Docusate Sodium 1 Tablet) 0 tablet PO DAILY [facility] Last Admin: 07/30/20 11:02 Dose: 1 tablet Documented by: Simethicone (Simethicone 80 Mg Tablet) 80 mg PO PCHS PRN PRN Reason: Indigestion/stomach pain Last Admin: 07/31/20 05:07 Dose: 80 mg Documented by: Sodium Chloride (0.9% Saline Lock 10 Ml Syringe) 5 - 15 ml IV UD PRN PRN Reason: SALINE FLUSH Last Admin: 07/30/20 16:35 Dose: 10 ml Documented by: Medical Necessity - Tobacco Use Smoking Status: Light Smoker (<10/day) Assessment/Plan All Active Problems Delivery by section (Acute) 40 weeks gestation of (Acute) 24 yo POD#2 s/p repeat section. Breast feeding. Feeling well, pain controlled. Acute blood loss secondary to surgery, no need for iron. Consumptive thrombocytopenia secondary to surgery. Home today
--- NOTE | 2020-07-31 08:18 | DCINST_ITS ---
Discharge Activity: Return to Normal Activity, May not drive while taking narcotic pain medications., May Shower May resume sexual activity in: 6 weeks Weight Bearing Status: Weight bearing as tolerated Call your doctor if your incision/area has: Continuous Slow Oozing, Increased Pain/ Swelling, Increased Redness Call your doctor if you observe: Fever of 101 or Higher, Inability to urinate, Inability to have a bowel movement, Using more than one pad per hour, Shortness of breath, Dizziness Cleanse incision/area with: Soap & Water Additional Instructions: If you experience any of the following, contact your healthcare provider. * Bleeding that soaks a pad every hour for 2 hours * Fever 100.4 or higher * Unrelieved incision or abdominal pain * Swelling, redness, discharge or bleeding from your incision or episiotomy site * Your incision begins to separate * Problems urinating (including inability to urinate or burning while urinating). * Visual changes * Severe headache * Flu-like symptoms * Pain or redness in one of both of your breasts * Pain, warmth, tenderness or swelling in your legs, especially the calf area * Frequent nausea and vomiting * Symptoms of depression or anxiety If you experience any of the following, call 911 or go to the nearest Emergency Room. * Chest pain * Problems breathing * Seizure activity * Partial or complete paralysis of a body part, slurred speech, weakness or drooping of the face, or a sudden inability to walk or hold your balance Allergies/Adverse Reactions: Allergies No Known Allergies Allergy (Verified 07/28/20 16:10) Medications to take at Discharge Aspirin [Aspirin, Baby] 81 mg PO DAILY@0800 04/30/20 Vits [Prenatabs FA] 1 tab PO DAILY 04/30/20 Oxycodone [Oxyir] 5 mg PO Q6H PRN PRN 5 Days #20 tab 07/31/20 The following prescriptions were given: Oxycodone [Oxyir] 5 mg PO Q6H PRN PRN 5 Days #20 tab PRN Reason: Pain Score 6-10 Transmission Status: Received by [facility] Follow-Up: Call to make an appointment with your doctor for an incision check in 1-2 weeks. You will also need a 6 week post- follow up appointment. Test results from this visit will be discussed in further detail at your follow- up appointment, if applicable. Please Follow Up With: Barbara Kennedy, When: 2 weeks incision check Primary Care Physician: Danyelle Garcia MD [Primary Care Provider] - Proposed Discharge Date: 07/31/20
--- NOTE | 2020-08-01 13:08 | CASEMGMT ---
Addendum entered and electronically signed by Louise Bryan 08/01/20 13:16: Clarification: Intervention occurred on 07.31.2020 Original Note: Social Work Labor and Delivery Unit Called [facility] at [phone] and spoke with Jl in the intake department. Referral given due to active involvement with said agency for the other minor child. Brief maternal and histories provided. Jl will document call and notify ongoing worker. No other services requested or indicated. This family is connected with community services that will follow in the community. -YOLA Andrew, DATA ENTRY
== END 2020-07-31 10:10 | disposition home or self-care (01) | DRG 540 ==
PROVIDERS: Admitting Provider Student in an Organized Health Care Education/Training Program; PCP Family Medicine; Referring Provider Student in an Organized Health Care Education/Training Program; Visit Provider Student in an Organized Health Care Education/Training Program
DX: O34.219 Maternal care for unspecified type scar from previous cesarean delivery (principal); O66.41 Failed attempted vaginal birth after previous cesarean delivery; O76 Abnormality in fetal heart rate and rhythm complicating labor and delivery; O48.0 Post-term pregnancy; O99.334 Smoking (tobacco) complicating childbirth; F17.210 Nicotine dependence, cigarettes, uncomplicated; Z3A.40 40 weeks gestation of pregnancy; Z37.0 Single live birth
CPT/HCPCS: 59025; 59050; 85025; 85027; 86850; 86900; 86901; 99218; J7120; A4216; G0378; J2405

== ENCOUNTER → 2020-09-02 20:16 | Outpatient (CLI) | payer MEDICAID, SELFPAY ==
[2020-07-28 17:08] VITALS: BMI 37.9
== END ==
PROVIDERS: PCP Family Medicine; Referring Provider Student in an Organized Health Care Education/Training Program; Visit Provider Student in an Organized Health Care Education/Training Program
DX: Z39.1 Encounter for care and examination of lactating mother (principal)
CPT/HCPCS: 96158

== ENCOUNTER 2022-05-07 10:06 | Emergency (ER) | payer MEDICAID, SELFPAY ==
[2022-05-07 10:06] VITALS: BP 129/115; PULSE 79; RESP 16; TEMP 36.6; O2SAT 100; BMI 27.4
--- NOTE | 2022-05-07 10:17 | EX.ED.DYSGE1 ---
HPI History of Present Illness Chief Complaint: Abd Pain Informant: patient Narrative Narrative: 26-year-old female presenting to the emergency room with 2 weeks of pelvic cramping. Patient states that it has continued to get worse. She states that this is the exact thing that happened when she needed to had surgery for an ovarian cyst. She made an appointment with her COMPUTERIZED MACHINE FABRIC CUTTER and went to the appointment today but failed to take her insurance card and they said that they could not see her without it. They told her that the only thing they could offer her would be to go to the emergency department and so she came here. She denies any urinary symptoms or change in bowel habits. No fevers. No vomiting. No rashes. G8, P2 AB 6. She denies any abnormal vaginal bleeding or discharge. [facility] Medical History (Updated 05/07/22 @ 12:[address] Ariel Villa DO) Ovarian cyst Home Medications vits,calcium no.78-iron fumarate-folic acid 29 mg-1 mg tablet 1 tab PO DAILY Check with primary doctor 04/30/20 [History Last Taken 07/27/20] ketorolac 10 mg tablet 10 mg PO Q8H PRN pain 5 days #15 tabs 05/07/22 [Rx Last Taken Unknown] Allergy/AdvReac Type Severity Reaction Status Date / Time No Known Allergies Allergy Verified 05/07/22 10:09 Surgical History History of delivery History of laparoscopy Social History (Updated 05/07/22 @ 10:[address] Ariel Villa DO) Smoking Status: Light Smoker (<10/day) substance use type: does not use ROS ROS ED Constitutional Constitutional ED: Denies chills or weight loss Eyes Eyes: Denies change in vision or diplopia ENT ENT ED: Denies ear pain, rhinorrhea or sore throat Cardiovascular Cardiovascular: Denies chest pain, orthopnea, palpitations or racing heartbeat Respiratory/Chest Respiratory/Chest: Denies cough, dyspnea or orthopnea Gastrointestinal Gastrointestinal: Denies abdominal pain, diarrhea, nausea or vomiting Genitourinary Genitourinary ED: Reports other Details: Pelvic pain ; Denies dysuria, hematuria or urinary frequency Musculoskeletal Musculoskeletal: Denies arthralgias or myalgias Integumentary Denies abscess or rash Neurologic Neurologic: Denies headache(s) or weakness Psychiatric Psychiatric: Denies anxiety, depression, suicidal ideation or suicidal thoughts Endocrine Endocrinology: Denies polydipsia, polyphagia or polyuria Allergic/Immunologic Allergic/Immunologic ED: Denies mouth swelling, tongue swelling or urticaria EXAM Physical Exam Const Vital Signs: 05/07/22 10:06 Temperature 98 F Temperature Source Temporal Pulse Rate 79 Respiratory Rate 16 Blood Pressure 129/115 H Blood Pressure Mean 119 Pulse Ox 100 Oxygen Delivery Method Room Air Positive well nourished and well developed General Appearance ED: well developed HEENT Reports normocephalic, head/scalp atraumatic and moist mucous membranes Eyes PERRL and EOMs intact bilaterally Neck no lymphadenopathy, supple and no JVD Resp normal respiratory effort and clear to auscultation bilaterally Cardio regular rate, regular rhythm and no murmurs GI Palpation: soft and tender suprapubic; Negative for guarding or rebound tenderness present Back/Spine no CVA tenderness and normal ROM Extremity normal to inspection General Extremety ED: Negative for edema General Extremity: Negative for edema Neuro oriented x3 and CN's II-XII intact bilaterally Sensorium / Orientation: alert Motor Exam: strength 5/5 throughout Psych mental status grossly normal Attitude: agitated Mood & Affect: Negative for depressed or tearful Skin no rashes or lesions noted and no wounds MDM MDM MDM Narrative Medical decision making narrative: Patient received a dose of Toradol. White blood cell count 8.8 hemoglobin of 15. test is negative. Urinalysis is normal. Pelvic ultrasound demonstrates a 1.9 x 2 x 1.7 cm septated cyst in the left ovary. At this point patient will be discharged home instructions to follow-up with gynecology. I can write for some Toradol at home. Lab Data Attestation: I reviewed the patient's lab results. Labs: Laboratory Results - last 24 hr 05/07/22 05/07/22 05/07/22 10:35 10:35 10:35 WBC 8.8 RBC 5.17 Hgb 15.0 Hct 44.3 MCV 85.7 MCH 29.0 MCHC 33.9 RDW Std Deviation 38.2 RDW Coeff of Zak 12.3 Plt Count 244 MPV 11.7 Immature Gran % (Auto) 0.300 Neut % (Auto) 57.8 Lymph % (Auto) 33.0 Mower % (Auto) 6.1 Eos % (Auto) 2.3 Baso % (Auto) 0.5 Absolute Neuts (auto) 5.1 Absolute Lymphs (auto) 2.89 Nucleated RBC % 0 Serum , Qual NEGATIVE Urine Color Yellow Urine Clarity Clear Urine pH 6.5 Ur Specific [place] 1.010 Urine Protein Negative Urine Glucose (UA) Normal Urine Ketones Negative Urine Occult Blood Negative Urine Nitrite Negative Urine Bilirubin Negative Urine Urobilinogen Normal Ur Leukocyte Esterase Negative Urine RBC 0 SEEN Urine WBC 0 SEEN Ur Squamous Epith Cells 0 SEEN Urine Bacteria 0 SEEN Urine Mucus 0 SEEN Radiography Diagnostic Testing: Clinical Impression(s) from Imaging Studies Transvaginal US 05/07/22 10:22 IMPRESSION: 1.9 cm x 2 cm x 1.7 cm septated cyst in the left ovary. Dominant follicle in the left ovary. Electronically Signed: Jonnie Costa MD at 12:03 EDT Reading Location ID and State: [facility] / [place] , Service support , Discharge Plan Triage Chief Complaint: Abd Pain ED Provider: Ariel Villa Dx/Rx/DC Orders Clinical Impression: Acute pelvic pain, Left ovarian cyst Instructions: ED Ovarian Cyst Prescriptions: New ketorolac 10 mg tablet 10 mg PO Q8H PRN (Reason: pain) 5 Days Qty: 15 0RF No Action vit,[id number] 1 TABLET tablet 1 tab PO DAILY Primary Care Provider: Care Physician,No Primary Referrals: Danyelle Garcia MD [Med Staff - Lease Purchase Driver] - Activity Restrictions/Additional Instructions: Please follow-up with gynecology as soon as possible. Disposition Disposition: Home, Self Care
--- NOTE | 2022-05-07 10:22 | US_ITS ---
STUDY: ULTRASOUND OF THE FEMALE PELVIS - COMPLETE REASON FOR EXAM: Female, 26 years old. Pelvic Pain -- HX OF CRAMPING AND LEFT PELVIC PAIN X 2 WEEKS LMP: 04/24/2022. TECHNIQUE: Transvaginal TECHNICAL QUALITY: Adequate. COMPARISON: None. FINDINGS: The uterus is anteverted and is in a midline position. The uterus measures 9.2 cm x 5.9 cm x 4 cm. Normal uterine cervix. The endometrium measures 6 mm in thickness, and is heterogeneous (striated). There is no demonstrated endometrial mass. There is no demonstrated myometrial mass. I.U.D. - The patient does not have an I.U.D. The right ovary is visualized. The right ovary measures 3.4 cm x 3.9 cm x 2.0 cm. There is no right ovarian cyst or ovarian mass. There is no visualized right adnexal mass or complex lesion. There is normal arterial and normal venous vascularity. The left ovary is visualized. The left ovary measures 3.8 cm x 4.2 cm x 3.8 cm. There is a septated cyst measuring 1.9 cm x 2 cm x 1.7 cm. A dominant follicle measuring 1.1 cm x 1.4 cm x 1.2 cm is seen as well. There is no visualized left adnexal mass or complex lesion. There is normal arterial and normal venous vascularity. There is minimal fluid in the cul-de-sac. US/Transvaginal Non- IMPRESSION: 1.9 cm x 2 cm x 1.7 cm septated cyst in the left ovary. Dominant follicle in the left ovary. Electronically Signed: Jonnie Costa MD at 12:03 EDT ,
[2022-05-07] MEDS: Ketorolac 30 MG/ML Syringe IV (10:34)
[2022-05-07 10:47] LABS: Bacteria 0 SEEN /hpf (None Seen); Mucous, Urine 0 SEEN /hpf (<or=2+); Red Blood Cells-Urine 0 SEEN /hpf (0-5); Squamous Epithelial Cells - UA 0 SEEN /hpf (5-10); White Blood Cells 0 SEEN /hpf (0-5)
[2022-05-07 10:52] LABS: Absolute Lymphocyte Count 2.89 X10^3/uL (0.83-4.51); Absolute Neutrophil Count 5.1 X10^3/uL (2.0-7.7); Basophil# 0.04 X10^3/uL; Basophil% 0.5 % (0-1); Eosinophils% 2.3 % (0-5); Hematocrit 44.3 % (37-47); Lymphocyte # 2.89 X10^3/ul (0.83-4.51); Mean Corp Hgb Conc 33.9 g/dL (32-36); Mean Corpuscular Volume 85.7 fL (81-99); Mean Platelet Vol. 11.7 fl (6.2-12.0); Monocyte# 0.53 X10^3/uL; Monocyte% 6.1 % (0-10); NRBC Flagged by Analyzer 0 % (0-5); Neutrophil # 5.07 X10^3/uL (2.7-7.7); Neutrophil % 57.8 % (47-70); Platelet Count 244 K/mm3 (150-450); RBC Distribution Width CV 12.3 % (11.6-14.6); RBC Distribution Width SD 38.2 fl (35.1-43.9); Red Blood Count 5.17 M/mm3 (4.2-5.4); White Blood Count 8.8 K/mm3 (4.4-11.0)
[2022-05-07 10:58] LABS: Color, Urine Yellow (Yellow); Glucose, Dipstick Normal (Normal); Ketone-Dipstick Negative (Negative); Leukocyte Esterase-Dipstick Negative /ul (Negative); Nitrite-Dipstick Negative (Negative); Occult Blood-Urine Negative /ul (Negative); Protein-Dipstick Negative (Negative); Urine Bilirubin Dipstick Negative (Negative); Urine Clarity Clear (Clear); Urine Urobilinogen Normal (Normal); Urine pH 6.5 (5.0 - 8.0)
[2022-05-07 11:02] LABS: Internal QC Validated? YES +Cl - CLEAR BKGD; Pregnancy, Serum, hCG Quali. NEGATIVE Negative
[2022-05-07 12:53] VITALS: RESP 14
== END 2022-05-07 12:54 | disposition home or self-care (01) ==
PROVIDERS: Emergency Provider Emergency Medicine; Visit Provider Emergency Medicine
DX: N83.202 Unspecified ovarian cyst, left side (principal); F17.200 Nicotine dependence, unspecified, uncomplicated; R10.2 Pelvic and perineal pain
CPT/HCPCS: 76830; 81001; 84703; 85025; 96374; 99283; A4216